=== PATIENT | male | born 1985 | race Caucasian/White ===

== ENCOUNTER 2020-12-17 16:07 | Emergency (ER) | payer OTHER ==
--- NOTE | 2020-12-17 17:01 | ED Physician Documentation ---
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 Patient states that he already had some back pain after shoveling snow this weekend, but this feels different. He states that about 4 years ago, he had a similar back pain, though that time was worse, and and that he did not have MRI at that time. He has an x-ray series which was fairly unremarkable and was advised symptomatic management. He states the symptoms improved but never seem to fully resolve. He states he has had twinges of pain occasionally in the same area over the last 4 years but that today, when he went to get out of the jet, he noticed a sharp, debilitating pain in the low spine and needed to be helped out by coworkers. Patient states that he did few more hours of work after flying, but after sitting in his office for an hour, he could not stand up straight very well and was sent in by his superior. Patient denies any numbness or tingling in his lower extremities. No weakness. No loss of bowel or bladder control. No direct injury. Patient does state that he does do heavy lifting and works out, but has not had any distinct injuries. No other complaints at this time. Review of Systems Ten Systems: 10 systems reviewed and negative Constitutional: reports: Reviewed and negative Eyes: reports: Reviewed and negative Ears: reports: Reviewed and negative Nose: reports: Reviewed and negative Throat: reports: Reviewed and negative Cardiac: reports: Reviewed and negative Respiratory: reports: Reviewed and negative GI: reports: Reviewed and negative : reports: Reviewed and negative Skin: reports: Reviewed and negative Musculoskeletal: reports: Back pain Neurologic: reports: Reviewed and negative Psychiatric: reports: Reviewed and negative Endocrine: reports: Reviewed and negative Immunocompromised: reports: Reviewed and negative PD PAST MEDICAL HISTORY - Past Medical History Past Medical History: No - Past Surgical History Past Surgical History: Yes Ortho: Knee replacement - Present Medications Home Medications: Ambulatory Orders Medication Instructions Recorded Confirmed No Known Home Medications 12/17/20 12/17/20 - Allergies Allergies/Adverse Reactions: Allergies Allergy/AdvReac Type Severity Reaction Status Date / Time Penicillins Allergy Hives Verified 12/17/20 16:20 - Social History Does the pt smoke?: No Smoking Status: Never smoker Does the pt drink ETOH?: No Does the pt have substance abuse?: No - Immunizations Immunizations are current?: Yes - POLST Patient has POLST: No PD ED PE NORMAL - Vitals Vital signs reviewed: Yes - General General: Alert and oriented X 3, No acute distress, Well developed/nourished - HEENT HEENT: Atraumatic, PERRL, EOMI, Moist mucous membranes - Neck Neck: Supple, no meningeal sign - Respiratory Respiratory: No respiratory distress - Back Back: No spinal TTP, Other (No spinal step-off. No tenderness to palpation of paraspinal musculature in the lumbar area. No SI tenderness.) - Derm Derm: Normal color, Warm and dry, No rash - Extremities Extremities: No deformity, Normal ROM s pain, Other (Stands on a narrow based gait.) - Neuro Neuro: Alert and oriented X 3, No motor deficit, No sensory deficit, Other (No focal neurologic deficits on exam) - Psych Psych: Normal mood, Normal affect Results - Vitals Vitals: Oxygen O2 Source Room air - Rads (name of study) lumbar spine XR Radiology: Final report received, EMP read indepedently, See rad report PD MEDICAL DECISION MAKING - ED course Complexity details: reviewed results, re-evaluated patient, considered differential, d/w patient ED course: I discussed with the patient that given the fairly longstanding, intermittent nature of his symptoms, MRI would be the test most likely to yield helpful information. The patient has reported that there is mostly the position he was seated and while flying today, combined with the confining nature of his straps, rather than extreme maneuvering or G forces that seemed to aggravate his back. As such, the patient most likely does not have a an acute bony injury. Patient still would like to go ahead and get an x-ray series, but has declined symptomatic management here in the emergency department. X-ray series is unremarkable. The patient actually has an appointment with his light surgeon tomorrow and I have advised him that it would be good to discuss MRI at that time. We have discussed symptomatic management at home, as well as the usual indications for return. Departure - Departure Disposition: 01 Home, Self Care Clinical Impression: Acute exacerbation of chronic low back pain Condition: Stable Instructions: ED Neck Back Pain General Follow-Up: BRIANNE NICOLE MD [Primary Care Provider] - Tomorrow Comments: Your x-rays today look good. 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 When you do, please discussed the possibility of MRI to further evaluate your back issues. You may use ibuprofen and Tylenol to help with the discomfort. You may also use heat and ice as well as stretches and massage to help with symptoms. L spine xray: IMPRESSION: 1. No acute fractures. 2. Disc height loss at L4-5 and L5-S1. Discharge Date/Time: 12/17/20 18:31
[2020-12-17 17:46] VITALS: BP 134/74
--- NOTE | 2020-12-17 18:03 | XRAY Report ---
PROCEDURE: Lumbar Spine 2 View INDICATIONS: lumbar back pain TECHNIQUE: 2 views of the lumbar spine were acquired. COMPARISON: None. FINDINGS: Bones: 5 [id number] vertebrae are present. There is normal bony alignment. Moderate disc heigh t loss L4-5 and L5-S1. No vertebral body compression fractures. No suspicious bony lesions. Soft tissues: Overlying bowel gas pattern is normal. No suspicious soft tissue calcifications. IMPRESSION: 1. No acute fractures. 2. Disc height loss at L4-5 and L5-S1. Reviewed by: Zakiya Quesada MD on 12/17/2020 5:02 PM [facility] Approved by: Zakiya Quesada MD on 12/17/2020 5:02 PM [facility] Station ID: [id number]
--- NOTE | 2020-12-17 18:07 | ED Physician Documentation ---
ED Addendum - Addendum Addendum: 12/17/20 18:05 IMPRESSION: 1. No acute fractures. 2. Disc height loss at L4-5 and L5-S1. Patient signed out by Dr. Campbell awaiting x-ray. No acute fractures on x-ray. Patient declines pain medication here or for home. Does have disc height loss at L4-L5 and L5-S1. 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 Departure - Departure Disposition: 01 Home, Self Care Clinical Impression: Acute exacerbation of chronic low back pain Condition: Stable Instructions: ED Neck Back Pain General Follow-Up: BRIANNE NICOLE MD [Primary Care Provider] - Tomorrow Comments: Your x-rays today look good. Please continue your plans to see your flight cat geon tomorrow. When you do, please discussed the possibility of MRI to further evaluate your back issues. You may use ibuprofen and Tylenol to help with the discomfort. You may also use heat and ice as well as stretches and massage to help with symptoms. L spine xray:
== END 2020-12-17 18:31 | disposition home or self-care (01) ==
LOC: ED 16:07
DX: M54.5 Low back pain (principal); G89.29 Other chronic pain
CPT/HCPCS: 99283; 99284